=== PATIENT | female | born 1975 | race African-American/Black ===

== ENCOUNTER 2019-08-21 07:34 | Emergency (ER) | payer MEDICAID ==
[~2019-08-21] VITALS: Ht 167.6 cm; Wt 103.0 kg
[2019-08-21] MEDS ORDERED: IBUPROFEN 600MG TABLET PO ONE (08:30)
[2019-08-21] MEDS ORDERED: AMOXICILLIN/POTASSIUM CLAVULANATE 875/125MG TAB PO ONE (08:30)
[2019-08-21 08:40] VITALS: BP 126/78
== END 2019-08-21 09:45 | disposition home or self-care (01) ==
LOC: ER 09:24
DX: K02.9 Dental caries, unspecified (principal)
CPT/HCPCS: 99283

== ENCOUNTER 2020-02-16 00:47 | Emergency (ER) | payer MEDICAID ==
[~2020-02-16] VITALS: Ht 167.6 cm; Wt 83.0 kg
[2020-02-16 01:40] VITALS: BP 162/90
[2020-02-16] MEDS ORDERED: ACETAMINOPHEN 325MG TABLET PO ONE (01:45)
== END 2020-02-16 02:00 | disposition home or self-care (01) ==
LOC: ER 00:47
DX: K02.9 Dental caries, unspecified (principal); K08.89 Other specified disorders of teeth and supporting structures
CPT/HCPCS: 99282